=== PATIENT | female | born 1990 | race Caucasian/White ===

== ENCOUNTER 2018-11-07 04:40 | Inpatient (IN) | payer MEDICAID ==
[2018-11-07] MEDS ORDERED: Oxytocin 10 Units/1 ML SDV ONE (05:07)
[2018-11-07] MEDS ORDERED: Naloxone 0.4 MG/ML SDV ONE (05:08)
[2018-11-07] MEDS ORDERED: Lidocaine 1% 50 ML MDV ONE (05:08)
[2018-11-07] MEDS ORDERED: Acetaminophen 325 MG Tab PO PRN (05:25)
[2018-11-07] MEDS ORDERED: Sodium Chloride 0.9% 10 ML Syringe FLUSH PRN (05:25)
--- NOTE | 2018-11-07 05:37 | PCM.LDHP ---
L&D History of Present Illness - General Date of Service: 11/07/18 (active labor at term) Admit Problem/Dx: Patient Status Order with Admit Dx/Problem 11/07/18 05:26 Patient Status [ADT] Routine Admission Diagnosis/Problem Admission Diagnosis/Problem Active labor at term Source of Information: Patient History Limitations: Reports: No Limitations - History of Present Illness Introduction:: Lora started funmi last night at about 2300. At 0400 noticed bloody show and contractions started to get stronger. Decided to come in. She is 41 weeks . no complications. GBS negative, ABO O neg and has had Rhogam at 28 weeks., HIV negative Healthy . Timing/Duration: Reports: minutes: (3) Location, : Reports: Abdomen Quality: Reports: Pressure Severity: Moderate Improves with: Reports: None Worsens with: Reports: None Associated Symptoms: Reports: vaginal bleeding - Related Data Allergies/Adverse Reactions: Allergies Allergy/AdvReac Type Severity Reaction Status Date / Time Sulfa (Sulfonamide Allergy Unknown Anaphylactic Verified 11/22/15 18:49 Antibiotics) Shock cefaclor [From Ceclor] Allergy Itching Verified 11/22/15 18:49 Home Medications: Home Meds Acetaminophen [Tylenol] 650 mg PO Q4H PRN #0 tablet 11/16/15 [Rx] Ibuprofen [IJD: Ibuprofen] 600 mg PO Q6H PRN #0 tablet 11/16/15 [Rx] Past Medical History - Past Health History Medical/Surgical History: Denies Medical/Surgical History Respiratory History: Reports: Asthma [employer]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: , Spontaneous : 4 Para: 2 LMP (Approximate): - Infectious Disease History Infectious Disease History: Reports: Chicken Pox Social & Family History - Family History Family Medical History: Unobtainable - Caffeine Use Caffeine Use: Reports: None - Living Situation & Occupation Living situation: Reports: Occupation: Employed H&P Review of Systems - Review of Systems: Review Of Systems: See Below General: Reports: No Symptoms HEENT: Reports: No Symptoms Pulmonary: Reports: No Symptoms Cardiovascular: Reports: No Symptoms Gastrointestinal: Reports: No Symptoms Genitourinary: Reports: No Symptoms Musculoskeletal: Reports: No Symptoms Skin: Reports: No Symptoms Psychiatric: Reports: No Symptoms Neurological: Reports: No Symptoms Hematologic/Lymphatic: Reports: No Symptoms Immunologic: Reports: No Symptoms L&D Exam - Exam Exam: See Below - Vital Signs Vital Signs: Last Vital Signs Temp 97.7 F 11/07/18 05:05 Pulse 102 H 11/07/18 05:05 Resp BP 155/93 H 11/07/18 05:05 Pulse Ox 96 11/07/18 05:05 - OB Specific Contraction Intensity: Moderate to Strong Movement: Active Heart Tones: Present Heart Tones per Min: 145 Presentation: Vertex - Caal Score Caal Score Cervix Position: Anterior Caal Score Consistency: Soft Caal Score Effacement: >80% Caal Score Dilation: > 5 cm Caal Score Infant's Station: -1 ,0 Caal Score Total: 12 - Exam General: Alert, Oriented HEENT: PERRLA Neck: Supple Lungs: Normal Respiratory Effort Cardiovascular: Regular Rate, Regular Rhythm GI/Abdominal Exam: Soft Rectal Exam: Normal Exam Genitourinary: Normal external exam, Cervical dilitation, Enlarged uterus, Vaginal bleeding Back Exam: Normal Inspection Extremities: No Pedal Edema, Normal Capillary Refill Skin: Warm Neurological: Cranial Nerves Intact, Reflexes Equal Bilateral Psychiatric: Alert, Normal Affect, Normal Mood - Patient Data Lab Results Last 24 hrs: Laboratory Results - last 24 hr 11/07/18 11/07/18 Range/Units 04:48 05:18 Urine Color Red Urine Appearance Slightly cloudy Urine pH 8.0 (4.5-8.0) Ur Specific [place] 1.005 L (1.008-1.030) Urine Protein 30 H (NEGATIVE) mg/dL Urine Glucose (UA) Normal (NEGATIVE) mg/dL Urine Ketones Negative (NEGATIVE) mg/dL Urine Occult Blood Large (NEGATIVE) Urine Nitrite Negative (NEGATIVE) Urine Bilirubin Negative (NEGATIVE) Urine Urobilinogen Normal (NORMAL) mg/dL Ur Leukocyte Esterase Moderate (NEGATIVE) Urine RBC 20-30 H (0-5) Urine WBC 5-10 H (0-5) Ur Epithelial Cells Many Amorphous Sediment Rare Urine Bacteria Few Urine Mucus Not seen Urine Opiates Screen Negative (NEGATIVE) Ur Oxycodone Screen Negative (NEGATIVE) Urine Methadone Screen Negative (NEGATIVE) Ur Propoxyphene Screen Negative (NEGATIVE) Ur Barbiturates Screen Negative (NEGATIVE) Ur Tricyclics Screen Negative (NEGATIVE) Ur Phencyclidine Scrn Negative (NEGATIVE) Ur Amphetamine Screen Negative (NEGATIVE) U Methamphetamines Scrn Negative (NEGATIVE) Urine MDMA Screen Negative (NEGATIVE) U Benzodiazepines Scrn Negative (NEGATIVE) U Cocaine Metab Screen Negative (NEGATIVE) U Marijuana (THC) Screen Negative (NEGATIVE) - Problem List (1) Normal SNOMED Code(s): 08479081 ICD Code: Z34.90 - ENCNTR FOR SUPRVSN OF NORMAL , UNSP, UNSP TRIMESTER Status: Acute Priority: High Current Visit: Yes (2) Normal labor SNOMED Code(s): 90304333 ICD Code: O80 - ENCOUNTER FOR FULL-TERM UNCOMPLICATED DELIVERY; Z37.9 - OUTCOME OF DELIVERY, UNSPECIFIED Status: Acute Current Visit: Yes Problem List Initiated/Reviewed/Updated: Yes Orders Last 24hrs: Active Orders 24 hr Category Date Time Status Patient Status [ADT] Routine ADT 11/07/18 05:26 Ordered Antiembolic Devices [RC] .Routine Care 11/07/18 05:28 Ordered Communication Order [RC] ASDIRECTED Care 11/07/18 05:26 Ordered Heart Tones [RC] PER UNIT ROUTINE Care 11/07/18 05:26 Ordered Non Stress Test [RC] Click to Edit Care 11/07/18 05:26 Ordered May Shower [RC] ASDIRECTED Care 11/07/18 05:25 Ordered Notify Provider Vital Signs [RC] PRN Care 11/07/18 05:25 Ordered Notify Provider [RC] PRN Care 11/07/18 05:26 Ordered OB Check [OM.PC] Click to Edit Care 11/07/18 04:48 Ordered Up ad Parisa [RC] ASDIRECTED Care 11/07/18 05:25 Ordered VTE/DVT Education [RC] Click to Edit Care 11/07/18 05:28 Ordered Vital Signs [RC] PER UNIT ROUTINE Care 11/07/18 05:26 Ordered Regular Diet [DIET] Diet 11/07/18 Lunch Ordered CBC WITH AUTO DIFF [HEME] Routine Lab 11/07/18 05:17 Ordered Acetaminophen [Tylenol] Med 11/07/18 05:25 Ordered 650 mg PO Q4H PRN Oxytocin/Normal Saline [Pitocin in NS 20 Units/1,000 ML Med 11/07/18 05:31 Ordered ] 20 unit in 1,000 ml IV ONETIME Sodium Chloride 0.9% [Saline Flush] Med 11/07/18 05:25 Ordered 10 ml FLUSH ASDIRECTED PRN DVT/VTE Prophylaxis Reflex [OM.PC] Routine Oth 11/07/18 05:25 Ordered Saline Lock Insert [OM.PC] Routine Oth 11/07/18 05:26 Ordered Resuscitation Status Routine Resus Stat 11/07/18 05:25 Ordered Medication Orders Acetaminophen (Tylenol) 650 mg PO Q4H PRN PRN Reason: Pain (Mild 1-3) and fever Oxytocin/Sodium Chloride (Pitocin In Ns 20 Units/1,000 Ml) 20 unit in 1,000 mls @ 999 mls/hr IV ONETIME ONE; Protocol Stop: 11/07/18 06:31 Sodium Chloride (Saline Flush) 10 ml FLUSH ASDIRECTED PRN PRN Reason: Keep Vein Open Assessment/Plan Comment:: 28 year old with active labor at term. CTX every 3 minutes and strong, bloody show 6/80/0 FHT 145 cat one strip HIV neg GBS neg ABO O neg Plan: ancipitate a vaginal delivery CBC pending Pitocin active management after Rhogam as needed, depending on baby's ABO
[2018-11-07] MEDS ORDERED: Lidocaine 1% 50 ML MDV INJECT ONE (07:15)
[2018-11-07] MEDS ORDERED: Lanolin 100% Cream 40 GM Tube TOP PRN (07:39)
[2018-11-07] MEDS ORDERED: Acetaminophen 325 MG Tab, 50 Tab Bulk Bottle PO PRN (07:42)
[2018-11-07] MEDS ORDERED: Ibuprofen 200 MG Tab, 24 Tab Bulk Bottle PO PRN (07:42)
--- NOTE | 2018-11-07 07:51 | PCM.DEL ---
L & D Note - General Info Date of Service: 11/07/18 (Childbirth) Mother's Due Date: 11/30/18 - Delivery Note Labor: Spontaneous Delivery Outcome: Livebirth Infant Delivery Mode: Spontaneous Presentation: Right Occiput Transverse (ROT) Nuchal Cord: Present (times 2 tight, neck and chest, removed after delivery, somersault delivery) Anesthesia Type: Local Episiotomy Type: None Laceration: None Placenta: Intact, Spontaneous Cord: 3 Vessels Estimated Blood Loss: 50 Resuscitation Needed: No [place]: Stimulated, Warmed, [place] Used Provider: Allyssa Sharp Score 1 min: 9 Score 5 min: 10 Second Stage Interventions: Reports: Second Nurse Reviewed Contraction Pattern, Second Nurse Reviewed Heart Tones, Pushing Effectively, Pushing, Knee Chest Position Delivery Comments (Free Text/Narrative):: 11/07/18 delivery note this 28 year old G4 now P3 who was 41 weeks delivered via at 0711 over an intact perineum a viable female in rot position. There was a tight nuchal cord around neck and chest. Somersault delivery technique was used and cord was removed after reduced after delivery. Female infant was placed on mother's abdomen where she cried spontaneously and was pink in color. She was dried and stimulated. Apgars of 9, 10. three vessel cord. The placenta was expressed spontaneously intact. Bottom intact. EBL 50cc Mother and to post in stable condition. weight 7-11 - General Info Date of Service: 11/07/18 Functional Status: Reports: Pain Controlled - Review of Systems General: Reports: No Symptoms HEENT: Reports: No Symptoms Pulmonary: Reports: No Symptoms Cardiovascular: Reports: No Symptoms Gastrointestinal: Reports: No Symptoms Genitourinary: Reports: No Symptoms Musculoskeletal: Reports: No Symptoms Skin: Reports: No Symptoms Neurological: Reports: No Symptoms Psychiatric: Reports: No Symptoms - Patient Data Vitals - Most Recent: Last Vital Signs Temp 97.7 F 11/07/18 05:05 Pulse 102 H 11/07/18 05:05 Resp BP 155/93 H 11/07/18 05:05 Pulse Ox 96 11/07/18 05:05 Weight - Most Recent: 150 lb Lab Results Last 24 Hours: Laboratory Results - last 24 hr 11/07/18 11/07/18 11/07/18 Range/Units 04:48 05:18 05:31 WBC 11.2 H (4.5-11.0) K/uL RBC 4.00 (3.30-5.50) M/uL Hgb 12.9 (12.0-15.0) g/dL Hct 36.8 (36.0-48.0) % MCV 92 (80-98) fL MCH 32 H (27-31) pg MCHC 35 (32-36) % Plt Count 201 (150-400) K/uL Neut % (Auto) 65 (36-66) % Lymph % (Auto) 24 (24-44) % [place] % (Auto) 9 H (2-6) % Eos % (Auto) 3 (2-4) % Baso % (Auto) 0 (0-1) % Urine Color Red Urine Appearance Slightly cloudy Urine pH 8.0 (4.5-8.0) Ur Specific [place] 1.005 L (1.008-1.030) Urine Protein 30 H (NEGATIVE) mg/dL Urine Glucose (UA) Normal (NEGATIVE) mg/dL Urine Ketones Negative (NEGATIVE) mg/dL Urine Occult Blood Large (NEGATIVE) Urine Nitrite Negative (NEGATIVE) Urine Bilirubin Negative (NEGATIVE) Urine Urobilinogen Normal (NORMAL) mg/dL Ur Leukocyte Esterase Moderate (NEGATIVE) Urine RBC 20-30 H (0-5) Urine WBC 5-10 H (0-5) Ur Epithelial Cells Many Amorphous Sediment Rare Urine Bacteria Few Urine Mucus Not seen Urine Opiates Screen Negative (NEGATIVE) Ur Oxycodone Screen Negative (NEGATIVE) Urine Methadone Screen Negative (NEGATIVE) Ur Propoxyphene Screen Negative (NEGATIVE) Ur Barbiturates Screen Negative (NEGATIVE) Ur Tricyclics Screen Negative (NEGATIVE) Ur Phencyclidine Scrn Negative (NEGATIVE) Ur Amphetamine Screen Negative (NEGATIVE) U Methamphetamines Scrn Negative (NEGATIVE) Urine MDMA Screen Negative (NEGATIVE) U Benzodiazepines Scrn Negative (NEGATIVE) U Cocaine Metab Screen Negative (NEGATIVE) U Marijuana (THC) Screen Negative (NEGATIVE) Med Orders - Current: Current Medications Acetaminophen (Tylenol) 650 mg PO Q4H PRN PRN Reason: Pain (Mild 1-3) and fever Acetaminophen (Tylenol Bulk Bottle) 325 mg PO Q4H PRN PRN Reason: Pain Emollient Ointment (Lansinoh Hpa) 1 gm TOP ASDIRECTED PRN PRN Reason: Sore Nipples Ibuprofen (Motrin Bulk Bottle) 600 mg PO Q6H PRN PRN Reason: Pain Sodium Chloride (Saline Flush) 10 ml FLUSH ASDIRECTED PRN PRN Reason: Keep Vein Open Discontinued Medications Oxytocin/Sodium Chloride (Pitocin In Ns 20 Units/1,000 Ml) 20 unit in 1,000 mls @ 999 mls/hr IV ONETIME ONE; Protocol Stop: 11/07/18 06:31 Lidocaine HCl (Xylocaine 1%) 0 ml INJECT ONETIME ONE Stop: 11/07/18 07:16 Naloxone HCl (Narcan) Confirm Administered Dose 0.4 mg .ROUTE .STK-MED ONE Stop: 11/07/18 05:09 Oxytocin (Pitocin) Confirm Administered Dose 10 unit .ROUTE .STK-MED ONE Stop: 11/07/18 05:08 - Exam General: Alert, Oriented HEENT: Pupils Equal Neck: Supple Lungs: Normal Respiratory Effort Cardiovascular: Regular Rate, Regular Rhythm GI/Abdominal Exam: Soft, Non-Tender (Female) Exam: Cervical Dilatation, Enlarged Uterus, Vaginal Bleeding Back Exam: Normal Inspection Extremities: No Pedal Edema, Normal Capillary Refill Skin: Warm, Dry, Intact Neurological: No New Focal Deficit Psy/Mental Status: Alert, Normal Affect, Normal Mood - Problem List & Annotations (1) Normal SNOMED Code(s): 50333946 Code(s): Z34.90 - ENCNTR FOR SUPRVSN OF NORMAL , UNSP, UNSP TRIMESTER Status: Acute Priority: High Current Visit: Yes (2) Normal labor SNOMED Code(s): 20301943 Code(s): O80 - ENCOUNTER FOR FULL-TERM UNCOMPLICATED DELIVERY; Z37.9 - OUTCOME OF DELIVERY, UNSPECIFIED Status: Acute Current Visit: Yes (3) Vaginal delivery SNOMED Code(s): 443296360 Code(s): O80 - ENCOUNTER FOR FULL-TERM UNCOMPLICATED DELIVERY Status: Acute Current Visit: Yes - Problem List Review Problem List Initiated/Reviewed/Updated: Yes - My Orders Last 24 Hours: My Active Orders 11/07/18 04:48 OB Check [OM.PC] Click to Edit 11/07/18 05:25 May Shower [RC] ASDIRECTED Notify Provider Vital Signs [RC] PRN Up ad [place] [RC] ASDIRECTED Acetaminophen [Tylenol] 650 mg PO Q4H PRN Sodium Chloride 0.9% [Saline Flush] 10 ml FLUSH ASDIRECTED PRN DVT/VTE Prophylaxis Reflex [OM.PC] Routine Resuscitation Status Routine 11/07/18 05:26 Communication Order [RC] ASDIRECTED Heart Tones [RC] PER UNIT ROUTINE Non Stress Test [RC] Click to Edit Notify Provider [RC] PRN Vital Signs [RC] PER UNIT ROUTINE Saline Lock Insert [OM.PC] Routine 11/07/18 05:28 Antiembolic Devices [RC] .Routine VTE/DVT Education [RC] Click to Edit 11/07/18 07:39 Patient Status [ADT] Routine Vital Signs [RC] PFP RHIG WORKUP, [BBK] Routine Lanolin [Lansinoh HPA] 1 gm TOP ASDIRECTED PRN Assess Lochia [WOMSER] Per Unit Routine Assess Uterine Involution [WOMSER] Per Unit Routine 11/07/18 07:40 Perineal Care [OM.PC] Per Unit Routine Peripheral IV Discontinue [OM.PC] Routine Sitz Bath [OM.PC] Per Unit Routine 11/07/18 07:42 Acetaminophen [Tylenol Bulk Bottle] 325 mg PO Q4H PRN Ibuprofen [Motrin Bulk Bottle] 600 mg PO Q6H PRN 11/07/18 Breakfast Regular Diet [DIET] 11/07/18 Lunch Regular Diet [DIET] - Assessment Assessment:: 11/07/18 28 year old G4 now P3 without complications Rhogam candidate - Plan Plan:: 28 year old with active labor at term. CTX every 3 minutes and strong, bloody show 6/80/0 FHT 145 cat one strip HIV neg GBS neg ABO O neg Plan: ancipitate a vaginal delivery CBC pending Pitocin active management after Rhogam as needed, depending on baby's ABO 11/07/18 Routine post care support breast feeding Rhogam work up and give as needed. 24-48 stay
[2018-11-08 07:11] VITALS: BP 146/90
--- NOTE | 2018-11-08 08:42 | PCM.PNPP ---
- General Info Date of Service: 11/08/18 (PPD 1 D/C) Admission Dx/Problem (Free Text): Patient Status Order with Admit Dx/Problem 11/07/18 05:26 Patient Status [ADT] Routine Admission Diagnosis/Problem Admission Diagnosis/Problem Active labor at term Functional Status: Reports: Pain Controlled - Review of Systems General: Reports: No Symptoms HEENT: Reports: No Symptoms Pulmonary: Reports: No Symptoms Cardiovascular: Reports: No Symptoms Gastrointestinal: Reports: No Symptoms Genitourinary: Reports: No Symptoms Musculoskeletal: Reports: No Symptoms Skin: Reports: No Symptoms Neurological: Reports: No Symptoms Psychiatric: Reports: No Symptoms - General Info Date of Service: 11/08/18 - Patient Data Vital Signs - Most Recent: Last Vital Signs Temp 97.2 F 11/08/18 07:09 Pulse 95 11/08/18 07:09 Resp 18 11/08/18 07:09 BP 146/90 H 11/08/18 07:09 Pulse Ox 99 11/08/18 07:09 Weight - Most Recent: 150 lb I&O - Last 24 Hours: Intake & Output 11/07/18 11/08/18 11/08/18 22:59 06:59 14:59 Intake Total 2304 800 Balance 2304 800 Lab Results - Last 24 Hours: Laboratory Results - last 24 hr 11/07/18 Range/Units 10:53 Blood Type O NEGATIVE Gel Antibody Screen Negative Rhogam Indicated Yes, baby rh pos Med Orders - Current: Current Medications Acetaminophen (Tylenol) 650 mg PO Q4H PRN PRN Reason: Pain (Mild 1-3) and fever Acetaminophen (Tylenol Bulk Bottle) 325 - 650 mg PO Q4H PRN PRN Reason: Pain Emollient Ointment (Lansinoh Hpa) 0 gm TOP ASDIRECTED PRN PRN Reason: Sore Nipples Ibuprofen (Motrin Bulk Bottle) 600 mg PO Q6H PRN PRN Reason: Pain Sodium Chloride (Saline Flush) 10 ml FLUSH ASDIRECTED PRN PRN Reason: Keep Vein Open Discontinued Medications Oxytocin/Sodium Chloride (Pitocin In Ns 20 Units/1,000 Ml) 20 unit in 1,000 mls @ 999 mls/hr IV ONETIME ONE; Protocol Stop: 11/07/18 06:31 Last Admin: 11/07/18 07:30 Dose: 999 mls/hr Lidocaine HCl (Xylocaine 1%) 0 ml INJECT ONETIME ONE Stop: 11/07/18 07:16 Last Admin: 11/07/18 10:50 Dose: Not Given Naloxone HCl (Narcan) Confirm Administered Dose 0.4 mg .ROUTE .STK-MED ONE Stop: 11/07/18 05:09 Last Admin: 11/07/18 10:51 Dose: Not Given Oxytocin (Pitocin) Confirm Administered Dose 10 unit .ROUTE .STK-MED ONE Stop: 11/07/18 05:08 Last Admin: 11/07/18 10:51 Dose: Not Given - Interaction Infant Disposition, : in Room with Family Infant Interaction: Holding Infant Feeding: Breastfed ; Nursed Well Support Person: - Recovery Exam Fundal Tone: Firm Fundal Level: 2 Fingerbreadths Below Umbilicus Fundal Placement: Midline Lochia Amount: Small Lochia Color: Rubra/Red Perineum Description: Intact, Minimal Bruising/Swelling Episiotomy/Laceration: None Urinary Elimination: Voided - Exam General: Alert, Oriented HEENT: Pupils Equal Neck: Supple Lungs: Clear to Auscultation, Normal Respiratory Effort Cardiovascular: Regular Rate, Regular Rhythm GI/Abdominal Exam: Soft Extremities: No Pedal Edema, Normal Capillary Refill Skin: Warm, Dry Neurological: No New Focal Deficit Psy/Mental Status: Alert, Normal Affect, Normal Mood - Problem List & Annotations (1) Normal SNOMED Code(s): 00405385 Code(s): Z34.90 - ENCNTR FOR SUPRVSN OF NORMAL , UNSP, UNSP TRIMESTER Status: Acute Priority: High Current Visit: Yes (2) Normal labor SNOMED Code(s): 52391241 Code(s): O80 - ENCOUNTER FOR FULL-TERM UNCOMPLICATED DELIVERY; Z37.9 - OUTCOME OF DELIVERY, UNSPECIFIED Status: Acute Current Visit: Yes (3) Vaginal delivery SNOMED Code(s): 895413584 Code(s): O80 - ENCOUNTER FOR FULL-TERM UNCOMPLICATED DELIVERY Status: Acute Current Visit: Yes - Problem List Review Problem List Initiated/Reviewed/Updated: Yes - My Orders Last 24 Hours: My Active Orders 11/07/18 07:39 Patient Status [ADT] Routine Lanolin [Lansinoh HPA] 0 gm TOP ASDIRECTED PRN Assess Lochia [WOMSER] Per Unit Routine Assess Uterine Involution [WOMSER] Per Unit Routine 11/07/18 07:40 Perineal Care [OM.PC] Per Unit Routine Peripheral IV Discontinue [OM.PC] Routine Sitz Bath [OM.PC] Per Unit Routine 11/07/18 07:42 Acetaminophen [Tylenol Bulk Bottle] 325 - 650 mg PO Q4H PRN Ibuprofen [Motrin Bulk Bottle] 600 mg PO Q6H PRN 11/07/18 10:53 SCREEN [BBK] Routine RHIG WORKUP, [BBK] Routine 11/07/18 Lunch Regular Diet [DIET] 11/08/18 08:33 CBC W/O DIFF,HEMOGRAM [HEME] Routine - Assessment Assessment:: 11/07/18 28 year old G4 now P3 without complications Rhogam candidate 11/08/18 Doing well Mood happy well voiding Flow light Had Rhogam HGB pending wants to go home - Plan Plan:: 28 year old with active labor at term. CTX every 3 minutes and strong, bloody show 6/80/0 FHT 145 cat one strip HIV neg GBS neg ABO O neg Plan: ancipitate a vaginal delivery CBC pending Pitocin active management after Rhogam as needed, depending on baby's ABO 11/07/18 Routine post care support breast feeding Rhogam work up and give as needed. 24-48 stay 11/08/18 Home today See me in 6 weeks for a post visit
== END 2018-11-08 12:59 | disposition home or self-care (01) | DRG 806 ==
LOC: JP.OBCHECK 04:40 → JP.OB 05:05 → OBSVTOIN 07:11 → JP.MS 07:46
PROVIDERS: ADMIT Nurse Practitioner Family; ATTEND Nurse Practitioner Family
PROC: 10E0XZZ Delivery of Products of Conception, External Approach (ICD-10-PCS; principal; 2018-11-07)
PROC: 3E0234Z Introduction of Serum, Toxoid and Vaccine into Muscle, Percutaneous Approach (ICD-10-PCS; 2018-11-07)
DX: O69.1XX0 Labor and delivery complicated by cord around neck, with compression, not applicable or unspecified (principal); O36.0930 Maternal care for other rhesus isoimmunization, third trimester, not applicable or unspecified; Z37.0 Single live birth; Z3A.41 41 weeks gestation of pregnancy; Z88.1 Allergy status to other antibiotic agents; Z88.2 Allergy status to sulfonamides
CPT/HCPCS: 36415; 59409; 80305-QW; 81001; 85025; 85027; 85460; 86850; 86900; 86901; 99211; A9270-GY; J2590; J2790

== ENCOUNTER 2019-01-08 22:58 | Emergency (ER) | payer MEDICAID ==
[2019-01-08 23:12] VITALS: PULSE 82
[2019-01-08] MEDS ORDERED: Sodium Chloride 0.9% 10 ML Syringe FLUSH PRN (23:35)
[2019-01-08] MEDS ORDERED: Sodium Chloride 0.9% 1,000 ML IV ONE (23:35)
[2019-01-09 00:07] VITALS: BP 122/73
--- NOTE | 2019-01-09 00:42 | CRLCR ---
Indication: Chest pain Technique: Chest 2 views Comparison: None Findings: Cardiovascular and mediastinum: Heart size and vasculature are normal in caliber and appearance. Lungs and pleural spaces: Lungs are clear. No sign of infiltrate or mass. No sign of pleural effusion. No pneumothorax. Bones and soft tissues: Dextroscoliosis thoracic spine. Pectus excavatum. Impression: No acute cardiopulmonary abnormality. Dictated by Serg Nixon MD @ Jan 09 2019 12:37AM Signed by Dr. Serg Nixon @ Jan 09 2019 12:40AM
--- NOTE | 2019-01-09 01:04 | EDM.PDOC ---
ED HPI GENERAL MEDICAL PROBLEM - General Chief Complaint: Fever Stated Complaint: FEVER,NAUSEA Time Seen by Provider: 01/08/19 23:21 Source of Information: Reports: Family History Limitations: Reports: No Limitations - History of Present Illness INITIAL COMMENTS - FREE TEXT/NARRATIVE: this lady was brought in by her husban He said she seemed very hot. She was nauseated but there was no vomiting. Possibly some fever she's not having any pain. Yesterday she was out in the sun a little bit. She felt cold at noon. She then went to the [place]. Afterward she had a temp 102. She finished 1 week of Prednisone for asthma. She seems weak and dizzy. She isn't talking hardly at all. - Related Data Allergies Allergy/AdvReac Type Severity Reaction Status Date / Time Sulfa (Sulfonamide Allergy Unknown Anaphylactic Verified 01/08/19 23:09 Antibiotics) Shock cefaclor [From Ceclor] Allergy Itching Verified 01/08/19 23:09 Home Meds: Home Meds Acetaminophen [Tylenol] 650 mg PO Q4H PRN #0 tablet 11/16/15 [Rx] Ibuprofen [IJD: Ibuprofen] 600 mg PO Q6H PRN #0 tablet 11/16/15 [Rx] Albuterol Sulfate [Albuterol Sulfate Hfa] 2 puff IN ASDIRECTED 01/08/19 [History ] Past Medical History - Past Health History Medical/Surgical History: Denies Medical/Surgical History HEENT History: Reports: Allergic Rhinitis Respiratory History: Reports: Asthma Gastrointestinal History: Reports: [employer]ATOR [employer]STIC[employer] History: Reports: , Spontaneous - Infectious Disease History Infectious Disease History: Reports: Chicken Pox - Past Surgical History HEENT Surgical History: Reports: Tonsillectomy Social & Family History - Family History Family Medical History: Unobtainable - Tobacco Use Smoking Status *Q: Never Smoker - Caffeine Use Caffeine Use: Reports: Soda - Recreational Drug Use Recreational Drug Use: No - Living Situation & Occupation Living situation: Reports: Occupation: Employed ED ROS GENERAL - Review of Systems Review Of Systems: See Below Constitutional: Reports: Fever, Malaise, Weakness HEENT: Reports: No Symptoms Respiratory: Reports: No Symptoms Cardiovascular: Reports: No Symptoms Endocrine: Reports: No Symptoms GI/Abdominal: Reports: No Symptoms : Reports: No Symptoms Musculoskeletal: Reports: No Symptoms Skin: Reports: No Symptoms Neurological: Reports: Other (seems listless and lethargic) Hematologic/Lymphatic: Reports: No Symptoms Immunologic: Reports: No Symptoms ED EXAM, SEPSIS - Physical Exam Exam: See Below Exam Limited By: No Limitations General Appearance: WD/WN, Lethargic Eye Exam: Bilateral Eye: Normal Inspection Ears: Normal TMs Nose: Normal Inspection Throat/Mouth: Normal Oropharynx Head: Atraumatic Neck: Normal Inspection Respiratory/Chest: Lungs Clear Cardiovascular: Regular Rate, Rhythm, No Murmur GI/Abdominal Exam: Non-Tender Back: Normal Inspection Extremities: Normal Inspection Neurological: Oriented, CN II-XII Intact, No Motor/Sensory Deficits, Other ( seems slow, listless almost lethargic) Skin: Warm, Dry Course - Vital Signs Last Recorded V/S: Last Vital Signs Temp 36.2 C 01/09/19 00:04 Pulse 82 01/08/19 23:12 Resp 18 01/09/19 00:04 BP 122/73 01/09/19 00:04 Pulse Ox 97 01/09/19 00:04 - Orders/Labs/Meds Orders: Active Orders 24 hr Category Date Time Status CULTURE STREP A CONFIRMATION [] Stat Lab 01/08/19 23:51 Results STREP SCRN A RAPID W CULT CONF [] Stat Lab 01/08/19 23:51 Results Sodium Chloride 0.9% [Saline Flush] Med 01/08/19 23:35 Active 10 ml FLUSH ASDIRECTED PRN Saline Lock Insert [OM.PC] Urgent Oth 01/08/19 23:35 Ordered Medication Orders Sodium Chloride (Saline Flush) 10 ml FLUSH ASDIRECTED PRN PRN Reason: Keep Vein Open Last Admin: 01/08/19 23:58 Dose: 10 ml Labs: Laboratory Tests 01/08/19 01/08/19 01/08/19 Range/Units 23:43 23:43 23:51 WBC 6.8 (4.5-11.0) K/uL RBC 4.65 (3.30-5.50) M/uL Hgb 14.0 D (12.0-15.0) g/dL Hct 41.0 (36.0-48.0) % MCV 88 (80-98) fL MCH 30 (27-31) pg MCHC 34 (32-36) % Plt Count 188 (150-400) K/uL Neut % (Auto) 70 H (36-66) % Lymph % (Auto) 16 L (24-44) % [place] % (Auto) 12 H (2-6) % Eos % (Auto) 2 (2-4) % Baso % (Auto) 0 (0-1) % Sodium 138 L (140-148) mmol/L Potassium 3.5 L (3.6-5.2) mmol/L Chloride 101 (100-108) mmol/L Carbon Dioxide 28 (21-32) mmol/L Anion Gap 12.5 (5.0-14.0) mmol/L BUN 15 (7-18) mg/dL Creatinine 0.9 (0.6-1.0) mg/dL Est Cr Clr Drug Dosing 80.36 mL/min Estimated GFR (MDRD) > 60 (>60) Glucose 96 (74-106) mg/dL Calcium 9.0 (8.5-10.1) mg/dL Total Bilirubin 0.5 (0.2-1.0) mg/dL AST 17 (15-37) U/L ALT 39 (12-78) U/L Alkaline Phosphatase 84 (46-116) U/L Total Protein 6.9 (6.4-8.2) g/dL Albumin 3.4 (3.4-5.0) g/dL Globulin 3.5 (2.3-3.5) g/dL Albumin/Globulin Ratio 1.0 L (1.2-2.2) Urine Color Yellow Urine Appearance Clear Urine pH 7.0 (4.5-8.0) Ur Specific [place] 1.005 L (1.008-1.030) Urine Protein Negative (NEGATIVE) mg/dL Urine Glucose (UA) Normal (NEGATIVE) mg/dL Urine Ketones Negative (NEGATIVE) mg/dL Urine Occult Blood Negative (NEGATIVE) Urine Nitrite Negative (NEGATIVE) Urine Bilirubin Negative (NEGATIVE) Urine Urobilinogen Normal (NORMAL) mg/dL Ur Leukocyte Esterase Negative (NEGATIVE) Urine RBC Not seen (0-5) Urine WBC Not seen (0-5) Ur Epithelial Cells Not seen Amorphous Sediment Not seen Urine Bacteria Not seen Urine Mucus Not seen Meds: Medications Generic Name Dose Route Start Last Admin Trade Name Freq PRN Reason Stop Dose Admin Sodium Chloride 10 ml 01/08/19 23:35 01/08/19 23:58 Saline Flush FLUSH 10 ml ASDIRECTED PRN Administration Keep Vein Open Discontinued Medications Generic Name Dose Route Start Last Admin Trade Name Gaurav PRN Reason Stop Dose Admin Sodium Chloride 1,000 mls @ 999 mls/hr 01/08/19 23:35 01/08/19 23:58 Normal Saline IV 01/09/19 00:35 999 mls/hr .BOLUS ONE Administration - Radiology Interpretation Free Text/Narrative:: cxr enl - Re-Assessments/Exams Free Text/Narrative Re-Assessment/Exam: 01/09/19 00:59 she received 1 L IV normal saline. She is awake alert and talkative now. She feels like prasad is ready to go home Departure - Departure Time of Disposition: 01:12 Disposition: Home, Self-Care 01 Condition: Fair Clinical Impression: Dehydration - Discharge Information Referrals: PCP,None [Primary Care Provider] - Additional Instructions: It appears that you got a little bit dehydrated. You could also have a mild viral infection. Rest indoors tomorrow and be sure to drink plenty liquids. Return to ER if needed. - My Orders Last 24 Hours: My Active Orders 01/08/19 23:35 Sodium Chloride 0.9% [Saline Flush] 10 ml FLUSH ASDIRECTED PRN Saline Lock Insert [OM.PC] Urgent 01/08/19 23:51 CULTURE STREP A CONFIRMATION [RM] Stat STREP SCRN A RAPID W CULT CONF [RM] Stat - Assessment/Plan Last 24 Hours: My Active Orders 01/08/19 23:35 Sodium Chloride 0.9% [Saline Flush] 10 ml FLUSH ASDIRECTED PRN Saline Lock Insert [OM.PC] Urgent 01/08/19 23:51 CULTURE STREP A CONFIRMATION [RM] Stat STREP SCRN A RAPID W CULT CONF [RM] Stat
== END 2019-01-09 01:22 | disposition home or self-care (01) ==
LOC: JP.ED 22:58
DX: E86.0 Dehydration (principal); J45.909 Unspecified asthma, uncomplicated; Z88.2 Allergy status to sulfonamides; Z88.1 Allergy status to other antibiotic agents; Z79.899 Other long term (current) drug therapy
CPT/HCPCS: 36415; 71046; 80053; 81001; 85025; 87081; 87430; 96360; 99283; J7030